=== PATIENT | female | born 1990 | race American Indian/Alaskan Native ===

== ENCOUNTER 2018-08-16 05:52 | Emergency (ER) | payer SELFPAY ==
[2018-08-16 06:25] LABS: Basophils # (Auto) 0.1 K/mm3 (0.0-0.1); Basophils % (Auto) 0.7 % (0.0-1.8); Eosinophils % (Auto) 0.3 % (0.0-4.3); Hemoglobin 11.2 gm/dl (10.1-14.3); Lymphocytes # (Auto) 1.8 K/mm3 (1.2-5.4); Lymphocytes % (Auto) 23.2 % (13.4-35.0); Monocytes # (Auto) 0.7 K/mm3 (0.0-0.8); Monocytes % (Auto) 9.2 % (0.0-7.3)
[2018-08-16 06:45] LABS: Alanine Aminotransferase 5 units/L (7-56); Albumin 4.1 g/dL (3.9-5); BUN/Creatinine Ratio 15; Blood Urea Nitrogen 9 mg/dL (7-17); Calcium 9.7 mg/dL (8.4-10.2); Hemolysis Index 1
--- NOTE | 2018-08-16 07:01 | Emergency Department Report ---
ED General Adult HPI - General Chief complaint: Abdominal Pain Stated complaint: LEFT SIDE PAIN Time Seen by Provider: 08/16/18 06:58 Source: patient Mode of arrival: Ambulatory Limitations: No Limitations - History of Present Illness Initial comments: 28-year-old female complains of left upper quadrant pain. She states this been in some mitten since Sunday. It is [id number] in intensity. She states that it hurts worse when she bends or works. She's had some nausea but no vomiting. This been no change in her bowel habits. She doesn't report any urinary symptoms. She has a history of ectopic . She denies fever or chills. -: week(s) (approximately) Location: left Radiation: abdomen Quality: sharp Consistency: intermittent Improves with: none Associated Symptoms: denies other symptoms Treatments Prior to Arrival: none - Related Data Previous Rx's Medication Instructions Recorded Last Taken Type Gentamicin 0.3% Ophth Soln 2 drops OP Q4H #1 bottle 04/30/14 Unknown Rx traMADol [Ultram 50 MG tab] 50 mg PO Q6HR PRN #10 tablet 04/30/14 Unknown Rx HYDROcodone/APAP 7.5-325 [[place] 1 each PO Q6HR PRN #14 tablet 10/24/14 Unknown Rx 7.5/325] Sulfacetamide Sod 10% (Nf) [Bleph 2 drops OS Q2H #1 bottle 10/24/14 Unknown Rx 10 (Nf)] Sulfamethoxazole/Trimethoprim 1 each PO BID #14 tablet 10/24/14 Unknown Rx [Bactrim DS TAB] cefUROXime [Ceftin] 250 mg PO Q12H #20 tablet 08/16/18 Unknown Rx traMADol [Ultram] 50 mg PO Q6HR PRN #10 tablet 08/16/18 Unknown Rx Allergies Allergy/AdvReac Type Severity Reaction Status Date / Time No Known Allergies Allergy Verified 10/24/14 16:01 ED Review of Systems ROS: Stated complaint: LEFT SIDE PAIN Other details as noted in HPI Constitutional: denies: chills, fever Eyes: denies: eye pain, eye discharge, vision change ENT: denies: ear pain, throat pain Respiratory: denies: cough, shortness of breath, wheezing Cardiovascular: denies: chest pain, palpitations Endocrine: no symptoms reported Gastrointestinal: abdominal pain. denies: vomiting, diarrhea Genitourinary: denies: urgency, dysuria, discharge Musculoskeletal: denies: back pain, joint swelling, arthralgia Skin: denies: rash, lesions Neurological: denies: headache, weakness, paresthesias Psychiatric: denies: anxiety, depression Hematological/Lymphatic: denies: easy bleeding, easy bruising ED Past Medical Hx - Past Medical History Previous Medical History?: Yes Hx Sickle Cell Disease: Yes Additional medical history: conjunctivitis 04/19 - Surgical History Past Surgical History?: Yes Additional Surgical History: LEFT LEG FX. LEFT HAND FX. ectopic preg x 2 - Social History Smoking Status: Current Every Day Smoker Substance Use Type: None - Medications Home Medications: Home Medications Medication Instructions Recorded Confirmed Last Taken Type Gentamicin 0.3% Ophth Soln 2 drops OP Q4H #1 bottle 04/30/14 Unknown Rx traMADol [Ultram 50 MG tab] 50 mg PO Q6HR PRN #10 tablet 04/30/14 Unknown Rx HYDROcodone/APAP 7.5-325 [[place] 1 each PO Q6HR PRN #14 tablet 10/24/14 Unknown Rx 7.5/325] Sulfacetamide Sod 10% (Nf) [Bleph 2 drops OS Q2H #1 bottle 10/24/14 Unknown Rx 10 (Nf)] Sulfamethoxazole/Trimethoprim 1 each PO BID #14 tablet 10/24/14 Unknown Rx [Bactrim DS TAB] cefUROXime [Ceftin] 250 mg PO Q12H #20 tablet 08/16/18 Unknown Rx traMADol [Ultram] 50 mg PO Q6HR PRN #10 tablet 08/16/18 Unknown Rx ED Physical Exam - General Limitations: No Limitations General appearance: alert, in no apparent distress - Head Head exam: Present: atraumatic, normocephalic - Eye Eye exam: Present: normal appearance. Absent: scleral icterus - ENT ENT exam: Present: mucous membranes moist - Neck Neck exam: Present: normal inspection. Absent: meningismus - Respiratory Respiratory exam: Present: normal lung sounds bilaterally. Absent: respiratory distress - Cardiovascular Cardiovascular Exam: Present: regular rate, normal rhythm. Absent: systolic murmur, diastolic murmur, rubs, gallop - GI/Abdominal GI/Abdominal exam: Present: soft, normal bowel sounds. Absent: distended, tenderness, guarding, rebound, rigid, organomegaly, mass, bruit, pulsatile mass, hernia - Extremities Exam Extremities exam: Present: normal inspection - Back Exam Back exam: Present: normal inspection - Neurological Exam Neurological exam: Present: alert, oriented X3, CN II-XII intact. Absent: motor sensory deficit - Psychiatric Psychiatric exam: Present: normal affect, normal mood - Skin Skin exam: Present: warm, dry, intact, normal color. Absent: rash ED Course Vital Signs 08/16/18 08/16/18 05:59 07:13 Temperature 98.2 F Pulse Rate 91 H Respiratory 22 22 Rate Blood Pressure 110/81 Blood Pressure 126/84 [Left] O2 Sat by Pulse 98 Oximetry ED Medical Decision Making - Lab Data Result diagrams: 08/16/18 06:12 08/16/18 06:12 Laboratory Results - last 24 hr 08/16/18 08/16/18 08/16/18 06:12 06:12 06:12 WBC 7.7 Hgb 11.2 Lymph % (Auto) 23.2 [place] % (Auto) 9.2 H Eos % (Auto) 0.3 Baso % (Auto) 0.7 Lymph # 1.8 [place] # 0.7 Eos # 0.0 Baso # 0.1 Seg Neutrophils % 66.6 Seg Neutrophils # 5.2 Sodium 139 Potassium 3.4 L Chloride 100.1 Carbon Dioxide 25 Anion Gap 17 BUN 9 Creatinine 0.6 L Estimated GFR > 60 BUN/Creatinine Ratio 15 Glucose 94 Calcium 9.7 Total Bilirubin 0.90 AST 10 ALT 5 L Alkaline Phosphatase 54 Total Protein 7.6 Albumin 4.1 Albumin/Globulin Ratio 1.2 HCG, Qual Negative Laboratory Results - last 24 hr 08/16/18 08/16/18 08/16/18 06:12 06:12 06:12 WBC 7.7 RBC 6.96 H Hgb 11.2 Hct 33.0 MCV 83 MCH 28 MCHC 33 RDW 14.0 Plt Count 292 Lymph % (Auto) 23.2 [place] % (Auto) 9.2 H Eos % (Auto) 0.3 Baso % (Auto) 0.7 Lymph # 1.8 [place] # 0.7 Eos # 0.0 Baso # 0.1 Seg Neutrophils % 66.6 Seg Neutrophils # 5.2 Sodium 139 Potassium 3.4 L Chloride 100.1 Carbon Dioxide 25 Anion Gap 17 BUN 9 Creatinine 0.6 L Estimated GFR > 60 BUN/Creatinine Ratio 15 Glucose 94 Calcium 9.7 Total Bilirubin 0.90 AST 10 ALT 5 L Alkaline Phosphatase 54 Total Protein 7.6 Albumin 4.1 Albumin/Globulin Ratio 1.2 HCG, Qual Negative Urine Color Urine Turbidity Urine pH Ur Specific [place] Urine Protein Urine Glucose (UA) Urine Ketones Urine Blood Urine Nitrite Urine Bilirubin Urine Urobilinogen Ur Leukocyte Esterase Urine WBC (Auto) Urine RBC (Auto) U Epithel Cells (Auto) Urine Bacteria (Auto) Urine Mucus 08/16/18 07:28 WBC RBC Hgb Hct MCV MCH MCHC RDW Plt Count Lymph % (Auto) [place] % (Auto) Eos % (Auto) Baso % (Auto) Lymph # [place] # Eos # Baso # Seg Neutrophils % Seg Neutrophils # Sodium Potassium Chloride Carbon Dioxide Anion Gap BUN Creatinine Estimated GFR BUN/Creatinine Ratio Glucose Calcium Total Bilirubin AST ALT Alkaline Phosphatase Total Protein Albumin Albumin/Globulin Ratio HCG, Qual Urine Color Elli Urine Turbidity Turbid Urine pH 6.0 Ur Specific [place] 1.015 Urine Protein 100 mg/dl Urine Glucose (UA) Neg Urine Ketones Neg Urine Blood Lg Urine Nitrite Pos Urine Bilirubin Neg Urine Urobilinogen < 2.0 Ur Leukocyte Esterase Mod Urine WBC (Auto) > 182.0 H Urine RBC (Auto) 57.0 U Epithel Cells (Auto) 3.0 Urine Bacteria (Auto) 3+ Urine Mucus 3+ - Radiology Data Radiology results: report reviewed (pelvic and abdominal ultrasound are normal) Critical care attestation.: If time is entered above; I have spent that time in minutes in the direct care of this critically ill patient, excluding procedure time. ED Disposition Clinical Impression: Acute pyelonephritis Disposition: OP ADMIT IP TO THIS HOSP Is pt being admited?: No Does the pt Need Aspirin: No Condition: Stable Instructions: Abdominal Pain (ED), Urinary Tract Infection in Women (ED) Additional Instructions: Follow-up urine culture in 2-3 days. Rx as directed. Return any acute change or problem, fever, chills, vomiting, increased pain. Prescriptions: cefUROXime [Ceftin] 250 mg PO Q12H #20 tablet traMADol [Ultram] 50 mg PO Q6HR PRN #10 tablet PRN Reason: Pain Referrals: [facility] [Provider Group] - 2-3 Days Time of Disposition: 08:54
[2018-08-16] MEDS ORDERED: ULTRAM PO ONE (07:07)
[2018-08-16 07:13] LABS: Mean Corpuscular HGB Conc 33 % (30-34); Mean Corpuscular Volume 83 fl (79-97); Red Blood Count 6.96 M/mm3 (3.65-5.03)
[2018-08-16 07:14] LABS: Mean Platelet Volume 8.7 fl (6-12); Platelet Count 292 K/mm3 (140-440)
[2018-08-16 07:39] LABS: Bacteria,Urine 3+ /HPF (Negative); Bilirubin,Urine NEG (Negative); Blood,Urine LG (Negative); Color,Urine Amber (Yellow); Mucus,Urine 3+ /HPF; Urobilinogen,Urine < 2.0 mg/dL (<2.0)
[2018-08-16 08:16] LABS: WBC,Urine > 182.0 /HPF (0.0-6.0)
--- NOTE | 2018-08-16 08:16 | Ultrasound Report ---
ULTRASOUND ABDOMEN COMPLETE INDICATION: LUQ pain. COMPARISON: None similar at this institution. FINDINGS: Abdominal sonography demonstrates normal hepatic contours without focal suspicious lesions or biliary dilatation. No gallstones or pericholecystic fluid. Gallbladder wall thickness is 2.1 mm. Common bile duct is 3.7 mm. Homogenous spleen estimated at 8 cm in length. No ascites. Visualized pancreas, nonaneurysmal abdominal aorta and IVC within normal limits. No hydronephrosis. Right kidney measures 11.8 x 4.1 x 5.9 cm with cortical thickness of 1.7 cm. Left kidney estimated at 11.3 x 4.6 x 5.4 cm with cortical thickness of 2 cm. CONCLUSION: Unremarkable abdominal sonogram, as described. Thank you for the opportunity to participate in this patient's care.
--- NOTE | 2018-08-16 08:21 | Ultrasound Report ---
ULTRASOUND PELVIS COMPLETE - TRANSABDOMINAL INDICATION: LLQ pain. COMPARISON: None similar. FINDINGS: Transabdominal pelvic sonography performed in this patient with LMP of 07/16/2018 demonstrates a 6.4 x 3.6 x 5.1 cm homogenous, anteverted uterus with endometrial thickness of 1.1 cm, image 7. Minimal pelvic free fluid. Right ovary measures 4.2 x 3.7 x 3.4 cm with a 3.1 cm intrinsic cyst as on images 15-17. Unremarkable left ovary estimated at 3.2 x 2.1 x 2.6 cm. CONCLUSION: No significant pelvic sonographic abnormality, as described. Thank you for the opportunity to participate in this patient's care.
[2018-08-16] MEDS ORDERED: XYLOCAINE 1% MPF 5 mL INFILTRATI ONE (08:56)
[2018-08-16] MEDS ORDERED: ROCEPHIN IM ONE (08:56)
[2018-08-16 09:20] VITALS: BP 115/78
== END 2018-08-16 09:34 | disposition admitted as inpatient to this hospital (09) ==
LOC: ED 05:52
DX: N10 Acute pyelonephritis (principal); D57.80 Other sickle-cell disorders without crisis; F17.200 Nicotine dependence, unspecified, uncomplicated; Z79.899 Other long term (current) drug therapy
CPT/HCPCS: 36415; 76700; 76856; 80053; 81001; 84703; 85025; 87076; 87086; 87186; 96372; 99284; J0696